=== PATIENT | female | born 1990 | race Caucasian/White ===

== ENCOUNTER → 2017-09-04 | Outpatient (REF) | payer SELFPAY | LOC: M LAB REF 13:52 | PROVIDERS: ATTEND Nurse Practitioner Adult Health | DX: Z13.29 Encounter for screening for other suspected endocrine disorder (principal) ==

== ENCOUNTER → 2017-10-08 | Outpatient (CLI) | payer MEDICAID ==
[2017-10-08 13:39] LABS: HCG, SERUM QUANTITATIVE < 1.0 MIU/ML
== END ==
LOC: M SMT 10:17
DX: N91.2 Amenorrhea, unspecified (principal)
CPT/HCPCS: 84702

== ENCOUNTER 2017-10-26 13:25 | Emergency (ER) | payer OTHER, MEDICAID | END 2017-10-26 14:42 | disposition home or self-care (01) | LOC: M ED 13:25 | DX: M26.602 Left temporomandibular joint disorder, unspecified (principal); E66.9 Obesity, unspecified; F99 Mental disorder, not otherwise specified; Z79.899 Other long term (current) drug therapy; Z88.0 Allergy status to penicillin | CPT/HCPCS: 70110 ==

== ENCOUNTER → 2018-04-06 | Outpatient (CLI) | payer OTHER ==
[2018-04-06 19:14] LABS: BASO % 0.2 % (0.0-1.0); EOS # 0.1 10^3/uL (0.0-0.50); EOS % 0.6 % (0.0-3.0); HEMATOCRIT 36.4 % (36.0-47.0); HEMOGLOBIN 11.8 g/dl (12.0-15.5); IMMATURE GRANULOCYTE % 0.5 % (0-3.0); LYMPH # 2.5 10^3/uL (1.5-6.5); LYMPH % 19.9 % (24.0-44.0); MEAN CORPUSCULAR HEMOGLOBIN 27.9 pg (27.0-33.0); MEAN CORPUSCULAR HGB CONC 32.4 g/dl (32.0-36.5); MEAN CORPUSCULAR VOLUME 86.1 fl (80.0-96.0); MONO # 0.8 10^3/uL (0.0-0.8); MONO % 5.9 % (0.0-5.0); NEUTROPHILS # 9.3 10^3/uL (1.8-7.7); NEUTROPHILS % 72.9 % (36.0-66.0); PLATELET COUNT, AUTOMATED 282 10^3/uL (150-450); RED BLOOD COUNT 4.23 10^6/uL (4.00-5.40); RED CELL DISTRIBUTION WIDTH 14.1 % (11.5-14.5); WHITE BLOOD COUNT 12.7 10^3/uL (4.0-10.0)
[2018-04-06 22:34] LABS: CHLAMYDIA DNA AMPLIFICATION NEGATIVE (NEGATIVE); GC DNA AMPLIFICATION NEGATIVE (NEGATIVE)
[2018-04-08 09:14] LABS: RUBELLA IgG QUALITATIVE IMMUNE (IMMUNE)
[2018-04-08 09:31] LABS: HBsAg Prenatal NEGATIVE (NEGATIVE)
[2018-04-08 09:44] LABS: HEPATITIS C VIRUS ABY INDEX < 0.0 INDEX (<0.8)
[2018-04-08 09:44] LABS: HIV 1&2 SCREEN CENTAUR NEGATIVE (NEGATIVE)
== END ==
LOC: M SMT 13:38
DX: Z34.81 Encounter for supervision of other normal pregnancy, first trimester (principal); Z36.89 Encounter for other specified antenatal screening
CPT/HCPCS: 86762

== ENCOUNTER → 2018-04-21 | Outpatient (CLI) | payer OTHER | LOC: M RAD 17:43 | DX: Z34.82 Encounter for supervision of other normal pregnancy, second trimester (principal); Z36.89 Encounter for other specified antenatal screening; Z3A.19 19 weeks gestation of pregnancy | CPT/HCPCS: 76817 ==

== ENCOUNTER → 2018-05-14 | Outpatient (CLI) | payer OTHER | LOC: M RAD 06:24 | DX: Z34.82 Encounter for supervision of other normal pregnancy, second trimester (principal); Z36.89 Encounter for other specified antenatal screening; Z3A.22 22 weeks gestation of pregnancy | CPT/HCPCS: 76816 ==

== ENCOUNTER → 2018-07-28 | Outpatient (CLI) | payer OTHER ==
[2018-07-28 10:44] LABS: BASO % 0.2 % (0.0-1.0); EOS # 0.1 10^3/uL (0.0-0.50); EOS % 0.7 % (0.0-3.0); HEMATOCRIT 34.4 % (36.0-47.0); HEMOGLOBIN 10.7 g/dl (12.0-15.5); IMMATURE GRANULOCYTE # 0.1 10^3/uL (0-0); IMMATURE GRANULOCYTE % 0.7 % (0-3.0); LYMPH # 2.3 10^3/uL (1.5-6.5); LYMPH % 18.4 % (24.0-44.0); MEAN CORPUSCULAR HEMOGLOBIN 26.2 pg (27.0-33.0); MEAN CORPUSCULAR HGB CONC 31.1 g/dl (32.0-36.5); MEAN CORPUSCULAR VOLUME 84.3 fl (80.0-96.0); MONO # 0.6 10^3/uL (0.0-0.8); MONO % 4.6 % (0.0-5.0); NEUTROPHILS # 9.3 10^3/uL (1.8-7.7); NEUTROPHILS % 75.4 % (36.0-66.0); PLATELET COUNT, AUTOMATED 298 10^3/uL (150-450); RED BLOOD COUNT 4.08 10^6/uL (4.00-5.40); RED CELL DISTRIBUTION WIDTH 13.5 % (11.5-14.5); WHITE BLOOD COUNT 12.3 10^3/uL (4.0-10.0)
[2018-07-28 11:28] LABS: GLUCOSE CHALLENGE TEST 1 HOUR 106 MG/DL (LESS THAN 140)
== END ==
LOC: M LAB 09:03
DX: O99.213 Obesity complicating pregnancy, third trimester (principal)
CPT/HCPCS: 82950

== ENCOUNTER 2018-11-01 13:12 | Emergency (ER) | payer OTHER ==
[~2018-11-01] VITALS: Ht 162.6 cm; Wt 140.5 kg
[2018-11-01 13:12] VITALS: BP 134/90
[~2018-11-01 13:12] MED LIST: AMPHET/DEXTR PO; CYCL10TA PO; FLUO20CA19 PO; NAPR-50 PO
--- NOTE | 2018-11-01 15:02 | REP ---
RIGHT ANKLE SERIES: Four views of the right ankle performed. There may be a tiny avulsion fracture of the lateral malleolus. I see no other evidence of acute fracture or dislocation. Ankle mortise is anatomic. There is lateral soft tissue swelling. Electronically Signed by Jd Langley MD 11/01/2018 07:09 P
== END 2018-11-01 15:39 | disposition home or self-care (01) ==
LOC: M ED 13:12
DX: S99.911A Unspecified injury of right ankle, initial encounter (principal); X50.9XXA Other and unspecified overexertion or strenuous movements or postures, initial encounter; Y92.410 Unspecified street and highway as the place of occurrence of the external cause; Z88.0 Allergy status to penicillin

== ENCOUNTER 2019-03-18 15:45 | Emergency (ER) | payer OTHER ==
[~2019-03-18] VITALS: Ht 162.6 cm; Wt 125.0 kg
[~2019-03-18 15:45] MED LIST changes: -NAPR-50 PO; +NAPR-837 PO
[2019-03-18] MEDS ORDERED: MIRE1IUD (16:04)
[2019-03-18] MEDS ORDERED: KETOROLAC 30 MG/ML VIAL (J1885) IV ONE (16:45)
[2019-03-18] MEDS ORDERED: PROHANCE 279.3MG/ML 5ML VIAL (A9576) As Ordered ONE (17:39)
[2019-03-18] MEDS ORDERED: PROHANCE 279.3MG/ML 15ML VIAL (A9576) As Ordered ONE (17:39)
--- NOTE | 2019-03-18 19:02 | REPVR ---
EXAM: MR Orbit Without and With Contrast EXAM DATE/TIME: 03/18/2019 6:11 PM CLINICAL HISTORY: 28 years old, female; Other: Papilledema; Additional info: RO papilledema TECHNIQUE: Imaging protocol: MR Orbit was performed without and with intravenous contrast. Contrast material: PROHANCE; Contrast volume: 20 ml; Contrast route: IV; COMPARISON: CR [facility] 10/26/2017 2:17 PM FINDINGS: Orbits: Minimal increased fluid in the optic nerve sheaths with increase in size in the optic nerve sheath diameters measuring 5.8 mm on the right and 5.6 mm on the left, findings consistent with papilledema. There is minimal posterior scleral flattening. There is no evidence of optic papilla protrusion in either globe. Sinuses: Unremarkable. No air-fluid levels. Soft tissues: Unremarkable. IMPRESSION: 1. Minimal increased fluid in the optic nerve sheaths with increase in size in the optic nerve sheath diameters measuring 5.8 mm on the right and 5.6 mm on the left, findings consistent with papilledema. 2. There is minimal posterior scleral flattening. Electronically signed by: Ishmael Ortiz On 03/18/2019 19:02:41 PM
--- NOTE | 2019-03-18 19:11 | REPVR ---
EXAM: MR Head Without and With Contrast EXAM DATE/TIME: 03/18/2019 6:11 PM CLINICAL HISTORY: 28 years old, female; Visual disturbance; Additional info: RO papilledema TECHNIQUE: Imaging protocol: MR of the head without and with intravenous contrast. Contrast material: PROHANCE; Contrast volume: 20 ml; Contrast route: IV; COMPARISON: No relevant prior studies available. FINDINGS: Brain: Normal. No hemorrhage. No significant white matter disease. No edema. No abnormal enhancement. Ventricles: Normal. No ventriculomegaly. Bones/joints: Unremarkable. Soft tissues: Normal. Sinuses: Normal as visualized. No acute sinusitis. Mastoid air cells: Normal as visualized. No mastoid effusion. Orbits: Optic nerve sheath diameter posterior to the globe on the right measures 5.3 mm and 5 mm on the left with minimal increase in the amount of fluid in the optic nerve sheath. No significant scleral flattening. No optic disc protrusion. IMPRESSION: Optic nerve sheath diameters are within normal limits with slight increase in fluid in the optic nerve sheath without any additional signs of papilledema. Unremarkable examination of the brain. Electronically signed by: Ishmael Ortiz On 03/18/2019 19:11:21 PM
[2019-03-18 21:34] VITALS: BP 125/78
== END 2019-03-18 21:39 | disposition short-term general hospital (02) ==
LOC: M ED 15:45
DX: H47.10 Unspecified papilledema (principal); Z88.0 Allergy status to penicillin; Z97.5 Presence of (intrauterine) contraceptive device
CPT/HCPCS: 70543; 70553; 96374; 99284; A9576; J1885

== ENCOUNTER 2019-06-30 17:24 | Emergency (ER) | payer OTHER ==
[~2019-06-30] VITALS: Ht 162.6 cm; Wt 128.4 kg
[~2019-06-30 17:24] MED LIST changes: +MIRE1IUD
[2019-06-30] MEDS ORDERED: ACET-897 (17:31)
[2019-06-30] MEDS ORDERED: ACET250T2 (17:31)
[2019-06-30] MEDS ORDERED: LIDO5OIN19 TOP (18:40)
[2019-06-30] MEDS ORDERED: PRED20TA PO (18:40)
[2019-06-30] MEDS ORDERED: VALA1TAB2 PO (18:40)
[2019-06-30 18:46] VITALS: BP 134/94
== END 2019-06-30 18:48 | disposition home or self-care (01) ==
LOC: M ED 17:24
DX: B02.9 Zoster without complications (principal); Z88.0 Allergy status to penicillin; Z88.1 Allergy status to other antibiotic agents; Z79.899 Other long term (current) drug therapy

== ENCOUNTER → 2019-10-27 | Outpatient (REF) | payer OTHER ==
[~2019-10-27] MED LIST changes: +ACET-897; +ACET250T2; +LIDO5OIN19 TOP; +PRED20TA PO; +VALA1TAB64 PO
[2019-10-27 15:05] LABS: INFLUENZA A AMPLIFICATION NEGATIVE (NEGATIVE); INFLUENZA B AMPLIFICATION POSITIVE (NEGATIVE)
== END ==
LOC: M LAB REF 12:20
PROVIDERS: ATTEND Physician Assistant
DX: J11.1 Influenza due to unidentified influenza virus with other respiratory manifestations (principal)

== ENCOUNTER → 2020-10-23 | Outpatient (CLI) | payer SELFPAY ==
[~2020-10-23] MED LIST changes: +CYCL-707 PO; -CYCL10TA PO; -FLUO20CA19 PO; +FLUO20CA22 PO; +VALA1TAB5 PO; -VALA1TAB64 PO
== END ==
LOC: M LABSMTC 11:53
PROVIDERS: ATTEND Pediatrics
DX: Z20.822 Contact with and (suspected) exposure to COVID-19 (principal)

== ENCOUNTER 2023-03-20 21:15 | Emergency (ER) | payer OTHER ==
[~2023-03-20] VITALS: Ht 162.6 cm; Wt 117.2 kg
[2023-03-20] MEDS ORDERED: AMPH1CAP5 (21:25)
[2023-03-20] MEDS ORDERED: HYDR-3363 (21:25)
[2023-03-20 23:03] VITALS: BP 142/88; TEMP 98.4; O2SAT 98
== END 2023-03-20 23:05 | disposition home or self-care (01) ==
LOC: M ED 21:15
DX: S40.011A Contusion of right shoulder, initial encounter (principal); W22.8XXA Striking against or struck by other objects, initial encounter; Y92.89 Other specified places as the place of occurrence of the external cause; Y93.89 Activity, other specified; Y99.8 Other external cause status; F90.9 Attention-deficit hyperactivity disorder, unspecified type; Z88.0 Allergy status to penicillin; Z79.899 Other long term (current) drug therapy

== ENCOUNTER → 2025-08-19 | Outpatient (REF) | payer OTHER ==
[~2025-08-19] MED LIST changes: +ACET250T18; -ACET250T2; +AMPH1CAP5; +FLUO-365 PO; -FLUO20CA22 PO; +HYDR-3363; +KETO10TAB PO; +LIDO1ADH93 TD
== END ==
LOC: M LAB REF 19:26
PROVIDERS: ATTEND Physician Assistant
DX: J02.9 Acute pharyngitis, unspecified (principal)